=== PATIENT | male | born 1970 | race Caucasian/White ===

== ENCOUNTER 2019-03-20 13:27 | Emergency (ER) | payer OTHER ==
[~2019-03-20 13:27] MED LIST: Sodium Chloride 0.9% 1,000 ML IV ONE; Sodium Chloride 0.9% 10 ML Syringe FLUSH PRN
--- NOTE | 2019-03-20 13:28 | EDM.PDOC ---
ED HPI GENERAL MEDICAL PROBLEM - General Stated Complaint: AMBULANCE Time Seen by Provider: 03/20/19 13:20 Source of Information: Reports: Patient, EMS, EMS Notes Reviewed, RN, RN Notes Reviewed History Limitations: Reports: No Limitations - History of Present Illness INITIAL COMMENTS - FREE TEXT/NARRATIVE: Pt to ER per [facility] with c/o seizure. EMS reports the patient's co-workers reported that the patient became stiff, fell back hitting his head, and had a seizure that lasted about 5 minutes. Patient continued to be post-ictal upon EMS arrival, disoriented to date. Upon arrival to the ER patient states that he was feeling somewhat confused this morning. States he has a seizure disorder that is generally precipitated by lack of sleep. States he dealt black sveta last night so did not get much sleep. Patient states he takes dilantin and he missed a "few doses" last week. Patient denies any recent illness. EMS reports patient was incontinent of urine. Onset: Today, Sudden - Related Data Allergies Allergy/AdvReac Type Severity Reaction Status Date / Time No Known Allergies Allergy Verified 12/24/15 20:39 Home Meds: Home Meds Lisinopril [Prinivil] 10 mg PO DAILY 05/12/15 [History] Phenytoin 400 mg PO DAILY 05/12/15 [History] Simvastatin [Zocor] 40 mg PO DAILY 05/12/15 [History] ED ROS GENERAL - Review of Systems Review Of Systems: ROS reveals no pertinent complaints other than HPI. - Physical Exam Exam: See Below Exam Limited By: No Limitations General Appearance: Alert, WD/WN, No Apparent Distress Eye Exam: Bilateral Eye: EOMI, Normal Inspection Ears: Normal External Exam, Hearing Grossly Normal Nose: Normal Inspection Throat/Mouth: Normal Voice, No Airway Compromise, Other (blood on the tongue from biting) Head Exam: Scalp Swelling, Scalp Abrasions, Scalp Ecchymosis, Scalp Hematoma, Scalp Tenderness Neck: Normal Inspection, Supple, Non-Tender Respiratory/Chest: No Respiratory Distress, Lungs Clear, No Accessory Muscle Use , Chest Non-Tender, Decreased Breath Sounds, Crackles (bases bilaterally) Cardiovascular: Normal Peripheral Pulses, Regular Rate, Rhythm, No Edema, No Gallop, No JVD, No Murmur, No Rub, Tachycardia GI/Abdominal: Normal Bowel Sounds, Soft, Non-Tender, No Organomegaly, No Distention, No Abnormal Bruit, No Mass (Male) Exam: Deferred Rectal (Males) Exam: Deferred Neuro Exam (Abbreviated): Alert, Oriented, CN II-XII Intact, Normal Cognition, Normal Gait, Normal Reflexes, No Motor/Sensory Deficits Back Exam: Normal Inspection, Full Range of Motion, NT Extremities: Normal Inspection, Normal Range of Motion, Non-Tender, No Pedal Edema, Normal Capillary Refill Psychiatric: Normal Affect, Normal Mood Skin Exam: Warm, Dry, Intact, Normal Color, No Rash Course - Vital Signs Last Recorded V/S: Last Vital Signs Temp 98.5 F 03/20/19 13:25 Pulse 100 03/20/19 13:25 Resp 16 03/20/19 13:25 BP 122/77 03/20/19 13:25 Pulse Ox 90 L 03/20/19 13:25 - Orders/Labs/Meds Orders: Active Orders 24 hr Category Date Time Status EKG Documentation Completion [RC] STAT Care 03/20/19 13:23 Active Peripheral IV Care [RC] . DIRECTED Care 03/20/19 13:24 Active Cervical Spine wo Cont [CT] Urgent Exams 03/20/19 13:45 Taken Sodium Chloride 0.9% [Saline Flush] Med 03/20/19 13:24 Active 10 ml FLUSH ASDIRECTED PRN Peripheral IV Insertion Adult [OM.PC] Stat Oth 03/20/19 13:23 Ordered Medication Orders Sodium Chloride (Saline Flush) 10 ml FLUSH ASDIRECTED PRN PRN Reason: Keep Vein Open Last Admin: 03/20/19 13:47 Dose: 10 ml Labs: Laboratory Tests 03/20/19 03/20/19 03/20/19 Range/Units 13:46 13:46 14:14 WBC 11.1 H (5.0-10.0) 10^3/uL RBC 5.10 (4.6-6.2) 10^6/uL Hgb 16.6 (14.0-18.0) g/dL Hct 47.9 (40.0-54.0) % MCV 93.9 (80-100) fL MCH 32.5 (27.0-34.0) pg MCHC 34.7 (33.0-35.0) g/dL Plt Count 254 (150-450) 10^3/uL Neut % (Auto) 64.3 (42.2-75.2) % Lymph % (Auto) 25.0 (20.5-50.1) % Pettis % (Auto) 7.9 (2-8) % Eos % (Auto) 2.3 (1.0-3.0) % Baso % (Auto) 0.5 (0.0-1.0) % Add Manual Diff Yes Neutrophils % (Manual) 65 (42-75) % Band Neutrophils % 2 % Lymphocytes % (Manual) 25 (20-50) % Monocytes % (Manual) 5 (2-8) % Eosinophils % (Manual) 3 (1-3) % Sodium 137 (135-145) mmol/L Potassium 4.2 (3.6-5.0) mmol/L Chloride 101 (101-111) mmol/L Carbon Dioxide 26.0 (21.0-31.0) mmol/L Anion Gap 14.2 BUN 17 (7-18) mg/dL Creatinine 1.1 (0.6-1.3) mg/dL Est Cr Clr Drug Dosing 85.57 mL/min Estimated GFR (MDRD) > 60 BUN/Creatinine Ratio 15.45 Glucose 135 H (74-105) mg/dL Calcium 9.1 (8.4-10.2) mg/dl Total Bilirubin 0.7 (0.2-1.0) mg/dL AST 38 (10-42) IU/L ALT 52 (10-60) IU/L Alkaline Phosphatase 45 (42-121) IU/L Total Protein 7.2 (6.7-8.2) g/dl Albumin 4.3 (3.2-5.5) g/dl Globulin 2.9 Albumin/Globulin Ratio 1.48 Urine Color (YELLOW) Urine Appearance (CLEAR) Urine pH (5.0-9.0) Ur Specific [place] (1.005-1.030) Urine Protein (NEGATIVE) Urine Glucose (UA) (NEGATIVE) Urine Ketones (NEGATIVE) Urine Occult Blood (NEGATIVE) Urine Nitrite (NEGATIVE) Urine Bilirubin (NEGATIVE) Urine Urobilinogen (0.2-1.0) mg/dL Ur Leukocyte Esterase (NEGATIVE) Urine RBC /HPF Urine WBC (0-5/HPF) /HPF Ur Epithelial Cells (NOT SEEN) /HPF Amorphous Sediment (NOT SEEN) /HPF Urine Bacteria (0-FEW/HPF) /HPF Urine Mucus (NOT SEEN) /LPF Urine Opiates Screen Negative (NEGATIVE) Ur Oxycodone Screen Negative (NEGATIVE) Urine Methadone Screen Negative (NEGATIVE) Ur Barbiturates Screen Negative (NEGATIVE) Phenytoin < 2.5 L (10-20) ug/mL U Tricyclic Antidepress Negative (NEGATIVE) Ur Phencyclidine Scrn Negative (NEGATIVE) Ur Amphetamine Screen Negative (NEGATIVE) U Methamphetamines Scrn Negative (NEGATIVE) Urine MDMA Screen Negative (NEGATIVE) U Benzodiazepines Scrn Negative (NEGATIVE) Urine Cocaine Screen Negative (NEGATIVE) U Marijuana (THC) Screen Negative (NEGATIVE) Ethyl Alcohol < 5 mg/dL 03/20/19 Range/Units 14:14 WBC (5.0-10.0) 10^3/uL RBC (4.6-6.2) 10^6/uL Hgb (14.0-18.0) g/dL Hct (40.0-54.0) % MCV (80-100) fL MCH (27.0-34.0) pg MCHC (33.0-35.0) g/dL Plt Count (150-450) 10^3/uL Neut % (Auto) (42.2-75.2) % Lymph % (Auto) (20.5-50.1) % Pettis % (Auto) (2-8) % Eos % (Auto) (1.0-3.0) % Baso % (Auto) (0.0-1.0) % Add Manual Diff Neutrophils % (Manual) (42-75) % Band Neutrophils % % Lymphocytes % (Manual) (20-50) % Monocytes % (Manual) (2-8) % Eosinophils % (Manual) (1-3) % Sodium (135-145) mmol/L Potassium (3.6-5.0) mmol/L Chloride (101-111) mmol/L Carbon Dioxide (21.0-31.0) mmol/L Anion Gap BUN (7-18) mg/dL Creatinine (0.6-1.3) mg/dL Est Cr Clr Drug Dosing mL/min Estimated GFR (MDRD) BUN/Creatinine Ratio Glucose (74-105) mg/dL Calcium (8.4-10.2) mg/dl Total Bilirubin (0.2-1.0) mg/dL AST (10-42) IU/L ALT (10-60) IU/L Alkaline Phosphatase (42-121) IU/L Total Protein (6.7-8.2) g/dl Albumin (3.2-5.5) g/dl Globulin Albumin/Globulin Ratio Urine Color Yellow (YELLOW) Urine Appearance Clear (CLEAR) Urine pH 5.5 (5.0-9.0) Ur Specific [place] >= 1.030 (1.005-1.030) Urine Protein 100 H (NEGATIVE) Urine Glucose (UA) Negative (NEGATIVE) Urine Ketones Negative (NEGATIVE) Urine Occult Blood Moderate H (NEGATIVE) Urine Nitrite Negative (NEGATIVE) Urine Bilirubin Negative (NEGATIVE) Urine Urobilinogen 0.2 (0.2-1.0) mg/dL Ur Leukocyte Esterase Negative (NEGATIVE) Urine RBC 5-10 H /HPF Urine WBC 0-5 (0-5/HPF) /HPF Ur Epithelial Cells Rare (NOT SEEN) /HPF Amorphous Sediment Occasional (NOT SEEN) /HPF Urine Bacteria Rare (0-FEW/HPF) /HPF Urine Mucus Rare (NOT SEEN) /LPF Urine Opiates Screen (NEGATIVE) Ur Oxycodone Screen (NEGATIVE) Urine Methadone Screen (NEGATIVE) Ur Barbiturates Screen (NEGATIVE) Phenytoin (10-20) ug/mL U Tricyclic Antidepress (NEGATIVE) Ur Phencyclidine Scrn (NEGATIVE) Ur Amphetamine Screen (NEGATIVE) U Methamphetamines Scrn (NEGATIVE) Urine MDMA Screen (NEGATIVE) U Benzodiazepines Scrn (NEGATIVE) Urine Cocaine Screen (NEGATIVE) U Marijuana (THC) Screen (NEGATIVE) Ethyl Alcohol mg/dL Meds: Medications Generic Name Dose Route Start Last Admin Trade Name Freq PRN Reason Stop Dose Admin Sodium Chloride 10 ml 03/20/19 13:24 03/20/19 13:47 Saline Flush FLUSH 10 ml ASDIRECTED PRN Administration Keep Vein Open Discontinued Medications Generic Name Dose Route Start Last Admin Trade Name Freq PRN Reason Stop Dose Admin Sodium Chloride 1,000 mls @ 999 mls/hr 03/20/19 13:24 03/20/19 13:47 Normal Saline IV 03/20/19 14:24 999 mls/hr .BOLUS ONE Administration Phenytoin Sodium 400 mg 03/20/19 14:33 Phenytoin PO 03/20/19 14:34 ONETIME ONE - Radiology Interpretation Free Text/Narrative:: Head CT wo contrast: Extracranial scalp hematoma. No sign of skull fracture or closed head injury C Spine CT wo contrast: Chest xray: No acute cardiopulmonary abnormality See rad report Departure - Departure Time of Disposition: 14:44 Disposition: Home, Self-Care 01 Condition: Fair Clinical Impression: Seizure, Hematoma Contusion Qualifiers: Encounter type: initial encounter Contusion area: head Contusion of head detail : scalp Qualified Code(s): S00.03XA - Contusion of scalp, initial encounter - Discharge Information *PRESCRIPTION DRUG MONITORING PROGRAM REVIEWED*: No *COPY OF PRESCRIPTION DRUG MONITORING REPORT IN PATIENT [place]IMBER[place]: No Instructions: Seizure, Adult, [id number], Hematoma, [id number], Contusion, [id number] Forms: ED Department Discharge Additional Instructions: Take Dilantin as directed Drink plenty of water Get plenty of sleep Follow up with Neurology - My Orders Last 24 Hours: My Active Orders 03/20/19 13:23 EKG Documentation Completion [RC] STAT Peripheral IV Insertion Adult [OM.PC] Stat 03/20/19 13:24 Peripheral IV Care [RC] . DIRECTED Sodium Chloride 0.9% [Saline Flush] 10 ml FLUSH ASDIRECTED PRN 03/20/19 13:45 Cervical Spine wo Cont [CT] Urgent - Assessment/Plan Last 24 Hours: My Active Orders 03/20/19 13:23 EKG Documentation Completion [RC] STAT Peripheral IV Insertion Adult [OM.PC] Stat 03/20/19 13:24 Peripheral IV Care [RC] . DIRECTED Sodium Chloride 0.9% [Saline Flush] 10 ml FLUSH ASDIRECTED PRN 03/20/19 13:45 Cervical Spine wo Cont [CT] Urgent
--- NOTE | 2019-03-20 14:15 | CR ---
EXAMINATION: Chest 2V SEX: Male AGE: 49 years CLINICAL HISTORY: 49-year-old male seizure disorder and "desaturation". INTERPRETATION: 1. Normal cardiac silhouette and pulmonary vascularity i.e. no pulmonary vascular congestion, alveolar edema or dependent effusion. 2. No lung mass, hilar lymphadenopathy or focal lobar pneumonia. 3. No atelectasis/collapse. 4. No pneumothorax. CONCLUSION: No acute cardiopulmonary abnormality.
--- NOTE | 2019-03-20 14:18 | CT ---
EXAMINATION: Head wo Cont SEX: Male AGE: 49 years CLINICAL HISTORY: Hypertensive 260 pound male smoker with seizure disorder who fell (hit head). Scan technique: Volume acquisition of data emergency unenhanced CT scan of the head and brain obtained with the patient lying supine on the Siemens multi slice scanner [place], [place]. All data archived in the PACS system for storage, reformatting axial/sagittal/coronal planes and study. INTERPRETATION: 1. Large midline extracranial subcutaneous hematoma located posteriorly over the parieto-occipital convexity. 2. Uniformly thick bony calvarium without sign of skull fracture, underlying brain contusion or epidural/subdural hematoma. 3. Symmetric weston-white matter pattern and underlying mirror-image normal ventricular system. 4. Physiologic pineal and choroid plexus calcifications. Symmetric clear pneumatization of the paranasal and mastoid sinuses. 5. No supratentorial or posterior fossa mass lesion. No sign of acute intracerebral/intraventricular/subarachnoid bleed. 6. No ischemic infarcts or abnormal focal areas of encephalomalacia (small arachnoid cyst posterior fossa) CONCLUSION: Extracranial scalp hematoma. No sign of skull fracture or closed head injury.
[2019-03-20 14:21] LABS: ANION GAP 14.2; CHLORIDE,CL 101 mmol/L (101-111); SODIUM,NA 137 mmol/L (135-145)
[2019-03-20] MEDS ORDERED: Phenytoin 100 MG Cap.ER PO ONE (14:33)
--- NOTE | 2019-03-20 14:48 | CT ---
EXAMINATION: Cervical Spine wo Cont SEX: Male AGE: 49 years CLINICAL HISTORY: 49-year-old hypertensive 260 pound male smoker with seizure disorder and head trauma. Seizure, fall, hit head SCAN TECHNIQUE: Volume acquisition of data from an emergency unenhanced CT scan of the cervical spine obtained with the patient lying supine on the Siemens multislice scanner [facility]. All data archived in the PACS system for storage, reformatting axial/sagittal/coronal planes and study. INTERPRETATION: 1. Marginal spondylosis several levels lower cervical spine. 2. Normal density, height and alignment of the 7 cervical vertebra. 3. No prevertebral soft tissue swelling, cervical fracture, spondylolisthesis or jumped locked facet. 4. No sign of basal skull fracture. Symmetric clear pneumatization of the mastoid sinuses. CONCLUSION: No cervical fracture or dislocation.
== END 2019-03-20 14:50 | disposition home or self-care (01) ==
LOC: DL.ED 13:27
DX: S00.03XA Contusion of scalp, initial encounter (principal); R56.9 Unspecified convulsions; Z79.899 Other long term (current) drug therapy; W19.XXXA Unspecified fall, initial encounter; W22.8XXA Striking against or struck by other objects, initial encounter
CPT/HCPCS: 36415; 70450; 71046; 72125; 80053; 80185; 80305; 80320; 81001; 85025; 93005; 96360; 99284; A9270; J7030; G0480

== ENCOUNTER 2023-10-09 06:26 | Day surgery (SDC) | payer OTHER ==
[2023-10-09] MEDS ORDERED: Midazolam 1 MG/ML 2 ML SDV IV ONE (06:27)
[2023-10-09] MEDS ORDERED: fentaNYL 100 MCG/2 ML SDV IV ONE (06:27)
[2023-10-09] MEDS ORDERED: Midazolam 1 MG/ML 2 ML SDV ONE (06:29)
[2023-10-09] MEDS ORDERED: fentaNYL 100 MCG/2 ML SDV ONE (06:29)
[2023-10-09] MEDS: Dextrose 5%-0.45% NaCl 1,000 ML IV SCH (06:42)
[2023-10-09] MEDS: fentaNYL 100 MCG/2 ML SDV IV ONE ×2 (07:29→07:30)
[2023-10-09] MEDS: Midazolam 1 MG/ML 2 ML SDV IV ONE ×6 (07:30→07:41)
== END 2023-10-09 09:45 | disposition home or self-care (01) ==
LOC: DL.ENDO 06:26
PROVIDERS: ATTEND Internal Medicine Gastroenterology
DX: Z12.11 Encounter for screening for malignant neoplasm of colon (principal); D12.0 Benign neoplasm of cecum; I11.9 Hypertensive heart disease without heart failure; E78.5 Hyperlipidemia, unspecified; E66.9 Obesity, unspecified; Z68.39 Body mass index [BMI] 39.0-39.9, adult
CPT/HCPCS: J2250; J3010; J7042